=== PATIENT | female | born 1990 | race Caucasian/White ===

== ENCOUNTER 2023-12-13 23:21 | Emergency (ER) | payer MEDICARE, SELFPAY ==
[2023-12-13 23:24] VITALS: BP 99/74
--- NOTE | 2023-12-13 23:59 | ED.SKININJ ---
HPI-Injury
General
Chief Complaint: Skin Surface Trauma
Source: patient
Exam Limitations: none
Time Seen by Provider: 12/13/23 23:49
Nursing documentation reviewed up to this point in time: agreed with
Travel History
Have you had any contact with someone who has COVID-19?: No
Do you have any symptoms of coronavirus? Fever > 100 degrees, chills, cough, shortness of breath, sore throat, loss of taste or smell, muscle aches, or headache?: No
History of Present Illness-Injury
Is this injury a work related problem?: No
Is pt an associate of [facility]?: No
Initial Injury comments:
Cut finger on a broken glass. Sustained lac to right palmar 5th finger. Injury occurred just [employer]
Past History
Past History
ED Past Medical History: Seizures
Review of Systems
Review of Systems
Allergies reviewed?: Yes
All Other Systems: ROS reviewed and negative except as documented in HPI and ROS
Constitutional: Reports no symptoms
Musculoskeletal: Reports no symptoms
Skin: Reports no symptoms (laceration palmar surface right 5th finger)
Neurological: Reports no symptoms
Psychiatric: Reports no symptoms
Skin Exam
Laceration
Right Palmar Fifth Finger:
Length in cm: 2
Orientation: C shaped
Type of Laceration: simple
Any active bleeding?: low grade venous oozing
Distal skin color and temperature: normal-warm & good color
Normal distal neurovascular exam: Yes
Range of motion: full
Phy Exam
General Physical Exam
General Presentation: well appearing and no apparent distress
General age: appears stated age
General Skin: warm and dry
General Habitus: normal
General Mental: alert
Musculoskeletal Exam
Musculoskeletal Exam: full ROM and neuro vasc intact
Skin Exam
Skin Exam: normal color, warm/dry and no rash
Psychiatric Exam
Psychiatric Exam: normal mood/affect
Course
Orders/Labs/Results
Orders:
Orders
12/13/23 23:49
Tetanus/Diphth/Acelpertussis [Adacel] 0.5 ml IM .ONCE ONE
Vital Signs
Initial and Last Documented VS:
Initial Vital Signs
Temp Pulse Resp BP Pulse Ox
98 F 89 16 99/74 100
12/13/23 23:24 12/13/23 23:24 12/13/23 23:24 12/13/23 23:24 12/13/23 23:24
Last Documented Vital Signs
Temp Pulse Resp BP Pulse Ox
98 F 89 16 99/74 100
12/13/23 23:24 12/13/23 23:24 12/13/23 23:24 12/13/23 23:24 12/13/23 23:24
Procedures
Laceration Closure
Right Palmar Fifth Finger:
Status of Wound: clean
Description of Wound Edges: sharp
Preparation: cleaned with saline and cleaned with Betadine
Anesthesia: 1% Lidocaine and Digital-Regional
Revision/Debridement: routine- no revision
Wound exploration: explored to base- no FB and no tendon involvement
Type of Closure: single layer closure
Skin Closure Material: 5-0 prolene
*Critical Care Note
Total Time (30-74mins, 75-104mins- exclusive of procedures): Not Applicable
Update Note
Update Note:
Patient reports Td UTD, declines xray. WOund explored. No evidence of FB
ED Attending Note
-
Portions of this chart may have been created with voice recognition software.� Occasional wrong word or��sound alike� substitutions may have occurred due to the inherent limitations of voice recognition software.
Discharge Plan
Departure
Patient Disposition: Home (Routine Discharge)
Date of Disposition: 12/14/23
Time of Disposition: 00:27
Patient with high blood pressure during this ER visit?: No
Condition: Good
Covid-19: Not Applicable
Discharge Problem:
Finger laceration
Instructions: Laceration Repair With Stitches (DC)
Referrals:
NONE,* [Family Provider] -
Activity Restrictions/Additional Instructions:
Sutures can be removed in 7-10 days by your family doctor.
Interventions
Interventions:
*Risk Screen - Suicide Last Done: 12/13/23 23:24
*General Assessment Last Done: 12/13/23 23:24
*Neglect/Abuse Screening Last Done: 12/13/23 23:24
ED-Skin Assessment Last Done: 12/13/23 23:52
Discharge Date and Time
Print Language: LIBYAN
[2023-12-14 00:35] VITALS: BP 101/79
[2023-12-14 00:52] VITALS: BMI 20.2
== END 2023-12-14 00:45 | disposition home or self-care (01) ==
LOC: EMR 23:21
PROVIDERS: EMERGENCY PHYSICIAN Emergency Medicine
DX: S61.411A Laceration without foreign body of right hand, initial encounter (principal); W25.XXXA Contact with sharp glass, initial encounter
CPT/HCPCS: 99282; 12002

== ENCOUNTER 2023-12-27 15:47 | Emergency (ER) | payer MEDICARE, SELFPAY ==
[2023-12-27 15:54] VITALS: BP 115/66
--- NOTE | 2023-12-27 16:54 | ED.GENMED ---
History of Present Illness
General
Chief Complaint: Wound Check/Suture Removal
Source: patient
Exam Limitations: none
Time Seen by Provider: 12/27/23 16:18
Nursing documentation reviewed up to this point in time: agreed with
Travel History
Have you had any contact with someone who has COVID-19?: No
Do you have any symptoms of coronavirus? Fever > 100 degrees, chills, cough, shortness of breath, sore throat, loss of taste or smell, muscle aches, or headache?: No
History of Present Illness
History of Present Illness:
33 Y/O F
here with concerns fo rpoor wound healing
was here on 12/12 for finger laceration right 5th finger
it was sutured
she went to yesterday for suture removal and was told that it was not sutured correctly and she is here requesting advice because she feels that it may open up and wants to ensure it doesn't get infected. '
no pain, swelling, redness, drainage
Past History
Past History
ED Past Medical History: Seizures
Social History
Tobacco: Non-smoker
Alcohol: Occasional
Drug: None
Review of Systems
Review of Systems
Allergies reviewed?: Yes
All Other Systems: Not applicable
Phy Exam
Physical Exam
Physical Exam:
GENERAL: Alert , in no apparent distress, comfortable at rest
CV: cap refill intact
NEUROLOGICAL: Alert and oriented, no focal neuro deficits, , 5/5 strength, sensation intact, ambulation slight limp right leg
SKIN: Warm and dry,
arc shaped laceration approx 1.5 cm to righg 5th finger with sutures out but slight opening of the epidermis but closed underneaht, no erythema
MUSCULOSKELETAL:finger laceration
can almost fully extend finge ran dcan flex
;
PSYCH: Normal and appropriate interaction.
Course
Vital Signs
Initial and Last Documented VS:
Initial Vital Signs
Temp Pulse Resp BP Pulse Ox
98.3 F 81 18 115/66 100
12/27/23 15:54 12/27/23 15:54 12/27/23 15:54 12/27/23 15:54 12/27/23 15:54
Last Documented Vital Signs
Temp Pulse Resp BP Pulse Ox
98.1 F 83 18 120/62 99
12/27/23 17:22 12/27/23 17:22 12/27/23 17:22 12/27/23 17:22 12/27/23 17:22
Procedures
Laceration Closure
Right Fifth Finger(s):
Status of Wound: clean
Size of Wound in cm: 1.5
Description of Wound Edges: ragged and flap-well vascularized
Preparation: cleaned with saline
Revision/Debridement: routine- no revision
Type of Closure: other (sterristrips)
MDM/Problems Addressed
Differential Diagnosis Includes:
finger wound dehiscence, poor healing
MDM/Problems Addressed:
33 y/o F
finger laceration 12/12 and sutured
removed yestwerday
sutble dehiscence at the epidermis
no signs of finection
some sensory deficit distally on the ulnar aspect since the injry
no flexor deficit
wound irrigated
dressed with sterri strip sof rreinforcement
finger splitn for 2 days to avoid opening
wound care
*Critical Care Note
Total Time (30-74mins, 75-104mins- exclusive of procedures): Not Applicable
ED Attending Note
-
Portions of this chart may have been created with voice recognition software.� Occasional wrong word or��sound alike� substitutions may have occurred due to the inherent limitations of voice recognition software.
Discharge Plan
Departure
Patient Disposition: Home (Routine Discharge)
Date of Disposition: 12/27/23
Time of Disposition: 17:00
Patient with high blood pressure during this ER visit?: No
Condition: Fair
Covid-19: Not Applicable
Discharge Problem:
Delayed wound healing
Instructions: Wound Care (DC), Steri-Strips over Glued Wound
Referrals:
NONE,* [Family Provider] -
Donavan Milligan MD [Active] - Follow up in 5-7 days ( NEEDED HAND)
Activity Restrictions/Additional Instructions:
LEAVE THIS DRESSING/SPLINT IN PLACE FOR 2 DAYS (YOU CAN REMOVE THE SPLINT TO SLEEP IF YOU'D LIKE BUT LEAVE THE BANDAIDS ON AND DO NOT GET WET)
AFTER2 DAYS TAKE THE SPLINT OFF AND YOU CAN ALLOW THE STERRISTRIPS TO GET WET IN THE SHOWER
THEY WILL PEEL UP AND FALL OFF EVENTUATLLY USUALLY 3-5 DAYS
IF YOU WANT TO KEEP IT COVERED WHILE AT WORK THAT WOULD BE GOOD.
IF YOU HAVE ANY CONCERNS PLEASE FOLLOW UP TWITH THE HAND DOCTOR.
RETURN [place] CONCERNS.
Interventions
Interventions:
*Risk Screen - Suicide Last Done: 12/27/23 17:16
*General Assessment Last Done: 12/27/23 15:54
*Neglect/Abuse Screening Last Done: 12/27/23 17:16
ED- Fall Risk Assessment Last Done: 12/27/23 17:22
*ED COVID-19 Vaccine History Last Done: 12/27/23 15:54
*Nursing Disposition Last Done: 12/27/23 17:22
ED-Skin Assessment Last Done: 12/27/23 17:21
Discharge Date and Time
Discharge Date/Time: 12/27/23 17:23
Print Language: NORTHER[place] IRISH
[2023-12-27 17:15] VITALS: BMI 22.8
[2023-12-27 17:22] VITALS: BP 120/62
== END 2023-12-27 17:23 | disposition home or self-care (01) ==
LOC: EMR 15:47
PROVIDERS: EMERGENCY PHYSICIAN Emergency Medicine
DX: S61.216A Laceration without foreign body of right little finger without damage to nail, initial encounter (principal); T81.30XA Disruption of wound, unspecified, initial encounter; X58.XXXA Exposure to other specified factors, initial encounter; Y84.8 Other medical procedures as the cause of abnormal reaction of the patient, or of later complication, without mention of misadventure at the time of the procedure; Y80 Physical medicine devices associated with adverse incidents
CPT/HCPCS: 99282; 29130

== ENCOUNTER 2024-11-22 02:09 | Emergency (ER) | payer MEDICARE, OTHER, SELFPAY ==
[2024-11-22 02:17] VITALS: BP 118/90
[2024-11-22 02:30] VITALS: BP 114/77
[2024-11-22 03:03] LABS: COVID-19 Antigen Negative (Negative)
--- NOTE | 2024-11-22 03:40 | ED.GENMED ---
History of Present Illness
<TED Wong - Last Filed: 11/22/24 04:42>
General
Chief Complaint: Cold/Flu/URI Symptoms
Source: patient
Exam Limitations: none
Time Seen by Provider: 11/22/24 02:27
History of Present Illness
History of Present Illness:
34 y/o female with a PMH of seizure disorder presenting to the ED c/o cough, sore throat and rhinorrhea. Pt was seen at on Saturday morning, no testing was done and she was diagnosed with a cold and told to take Mucinex. Tried Mucinex with
no relief. Started to feel worse Saturday making her unable to sleep, throat feels like its 'on fire' and the cough got worse and feels uncomfortable. Reports bilateral numbness in her hands and fingers that started yesterday but she is unsure if it
related to her current symptoms. Pt denies chest pain, SOB, abdominal pain, N/V/D. Pt is 33 weeks .
Past History
<TED Wong - Last Filed: 11/22/24 04:42>
Past History
ED Past Medical History: Seizures
Social History
Tobacco: Former smoker
Alcohol: Occasional
Drug: None
Review of Systems
<TED Wong - Last Filed: 11/22/24 04:42>
Review of Systems
Allergies reviewed?: Yes
Constitutional: Reports no symptoms
EENT: Reports sore throat and runny nose
Respiratory: Reports cough
Cardiac: Reports no symptoms
ABD/GI: Reports vomiting
: Reports no symptoms
Skin: Reports no symptoms
Neurological: Reports numbness (bilateral hand numbness)
Phy Exam
<TED oWng - Last Filed: 11/22/24 04:42>
General Physical Exam
General Presentation: well appearing and no apparent distress
General age: appears stated age
General Skin: warm and dry
General Habitus: normal
General Mental: alert
General Hydration: appears well hydrated
ENT Exam
ENT Exam: TM's normal, neck supple, normocephalic and pharyngeal erythema
Eye Exam
Eye Exam: conjunctiva normal
Cardiovascular Exam
Cardiovascular Exam: regular rate/rhythm, no edema, no gallop, no murmur and normal peripheral pulses
Pulmonary Exam
Pulmonary Exam: lungs clear, no respiratory distress, no crackles, no rhonchi and no wheezing
Cough: productive cough
Gastrointestinal Exam
Gastrointestinal Exam: normal bowel sounds, non tender, soft and other
Genitourinary Exam Female
Uterus: other (Gravid uterus )
Skin Exam
Skin Exam: normal color, warm/dry and no rash
Course
<TED Wong - Last Filed: 11/22/24 04:42>
Orders/Labs/Results
Orders:
Orders
11/22/24 02:32
COVID-19 Antigen Urgent
Source: Nasal Swab
Influenza A+B Rapid Molecular Urgent
KELLY Source: Nasal Swab
Specimen Description:
11/22/24 04:27
Benzonatate [Tessalon Perles] 100 mg PO NOW STA
Vital Signs
Initial and Last Documented VS:
Initial Vital Signs
Temp Pulse Resp BP Pulse Ox
98.4 F 104 22 118/90 96
11/22/24 02:17 11/22/24 02:17 11/22/24 02:17 11/22/24 02:17 11/22/24 02:17
Last Documented Vital Signs
Temp Pulse Resp BP Pulse Ox
98.4 F 101 18 114/77 98
11/22/24 02:17 11/22/24 02:45 11/22/24 02:45 11/22/24 02:30 11/22/24 02:45
<Sandoval Henao DO - Last Filed: 11/22/24 04:38>
Orders/Labs/Results
Orders:
Orders
11/22/24 02:32
COVID-19 Antigen Urgent
Source: Nasal Swab
Influenza A+B Rapid Molecular Urgent
KELLY Source: Nasal Swab
Specimen Description:
11/22/24 04:27
Benzonatate [Tessalon Perles] 100 mg PO NOW STA
Vital Signs
Initial and Last Documented VS:
Initial Vital Signs
Temp Pulse Resp BP Pulse Ox
98.4 F 104 22 118/90 96
11/22/24 02:17 11/22/24 02:17 11/22/24 02:17 11/22/24 02:17 11/22/24 02:17
Last Documented Vital Signs
Temp Pulse Resp BP Pulse Ox
98.4 F 101 18 114/77 98
11/22/24 02:17 11/22/24 02:45 11/22/24 02:45 11/22/24 02:30 11/22/24 02:45
<TED Wong - Last Filed: 11/22/24 04:42>
*Critical Care Note
Total Time (30-74mins, 75-104mins- exclusive of procedures): Not Applicable
ED Attending Note
<TED Wong - Last Filed: 11/22/24 04:42>
-
Portions of this chart may have been created with voice recognition software.� Occasional wrong word or��sound alike� substitutions may have occurred due to the inherent limitations of voice recognition software.
<DO Azra Morris Last Filed: 11/22/24 04:38>
ED Attending Note
Patient seen and examined by attending physician: Yes
I performed the substantive portion of visit, reviewed & personally made and approve the management plan that is documented in note by myself or BERTHA.: Yes
ED Attending Note:
Pleasant 34-year-old female who is 33 weeks presents to the emergency department with cough sore throat and runny nose. Patient tested positive for flu here. She was seen in urgent care yesterday and diagnosed with a cold. She tried
multiple udjy-xry-kodeuip remedies for her cough results. She states that tonight she was unable to sleep. Patient has no other complaints. She states that she did have bilateral numbness in her hands and fingers that began yesterday but states
that that has improved.. Patient was seen in conjunction with the PA student. I have reviewed and agree with the history and treatment plan presented. On my independent physical exam, patient is awake, alert, and oriented x3 minimal acute
distress. Gravid. Uterus. Lungs clear to auscultation bilateral without wheezes rales or rhonchi present. heart tones normal.
Discharge Plan
Departure
Patient Disposition: Home (Routine Discharge)
Date of Disposition: 11/22/24
Time of Disposition: 04:34
Patient with high blood pressure during this ER visit?: Yes
Discharge Problem:
Influenza,
Instructions: and the Flu, Flu in adults - Discharge instructions
Referrals:
UNKNOWN - PT DOES,NOT KNOW [Unknown Provider] -
Activity Restrictions/Additional Instructions:
It is important to keep your appointment with [facility].
Thank You for choosing [facility].
It was a pleasure meeting you and taking part in your care. We hope for your continued healing and wellness.
Please read discharge instructions in their entirety. However, they are for general education and may not describe your exact diagnosis at discharge. Information on your ER visit and medical conditions were discussed with you along with appropriate
follow up information...
If indicated, please take your medications as instructed and indicated on discharge paperwork.
Please schedule a follow up appointment as directed. Call to schedule an appointment
Please return to the emergency department with ANY change in, persisting, or worsening of symptoms. If any of your symptoms do not improve, or persist, or become more severe within 6-12 hours, please return to the emergency department for further
care.
Please return to the emergency department if you develop a headache, neck pain/stiffness, fever greater than 100.4F, chest pain, shortness of breath, persistent nausea, vomiting, slurred speech, difficulty walking, numbness/tingling, weakness, signs
of infection or any other symptoms that are worrisome to you.
If you have any questions or concerns please do not hesitate to call the Hospital at or E-mail me directly at [email or web address]
Interventions
Interventions:
*Risk Screen - Suicide Last Done: 11/22/24 02:17
*General Assessment Last Done: 11/22/24 02:34
*Neglect/Abuse Screening Last Done: 11/22/24 02:17
*ED- Fall Risk Assessment Last Done: 11/22/24 02:34
*ED COVID-19 Vaccine History Last Done: 11/22/24 02:34
UT-Ubozps-Oavbpviizg Assessment Last Done: 11/22/24 02:36
ED- Pulmonary Assessment Last Done: 11/22/24 02:36
Discharge Date and Time
Print Language: [id number]
[2024-11-22] MEDS: TESSALON PERLES 100 MG PO (04:34)
== END 2024-11-22 05:02 | disposition home or self-care (01) ==
LOC: EMR 02:09
PROVIDERS: EMERGENCY PHYSICIAN Student in an Organized Health Care Education/Training Program; FAMILY PHYSICIAN Family Medicine
DX: O99.513 Diseases of the respiratory system complicating pregnancy, third trimester (principal); J10.1 Influenza due to other identified influenza virus with other respiratory manifestations; Z87.891 Personal history of nicotine dependence; Z11.52 Encounter for screening for COVID-19; Z3A.33 33 weeks gestation of pregnancy
CPT/HCPCS: 99283; 87502; 87811